=== PATIENT | female | born 1960 | race Caucasian/White ===

== ENCOUNTER 2022-03-04 10:22 | Emergency (ER) | payer OTHER ==
--- NOTE | 2022-03-04 10:38 | ERPHSYRPT ---
- History of Present Illness Time Seen by Provider: 03/04/22 10:36 Source: patient Exam Limitations: no limitations Patient Subjective Stated Complaint: PT states "I am not sure what happened, but on monday I fell at work, this morning I got off work and choked while I was drinking and when I was driving my feet went numb and then my hands went numb and my lips tingled. It was both sides." Triage Nursing Assessment: pt presented alert and oriented X 3, skin pwd Pt ambulates with an upright steady gait, able to speak in clear full sentences pt in no apaprent respiratory distress. PT resting comfortably on the bed. Physician History: This is a 61-year-old white female who fell backwards onto her head 1 week ago while at work in the [employer]. She was wearing her hard hat. This morning she choked while drinking, she also complained of bilateral feet and bilateral hand numbness that occurred this morning. Since her fall she is complained of headache, neck pain and left hip pain. Patient does not have a primary care provider. She does not take any medications and she denies any medical illnesses. Patient states that her choking and numbness symptoms have completely resolved. 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 She denies chest pain. She denies shortness of breath. She has no abdominal pain. She has not had a fever. She has no flulike symptoms. Patient ambulated on her own in an upright and steady manner to her room in the emergency department. Patient has an appointment to see a primary care provider on Monday, March 07, 2022. Timing/Duration: today, resolved prior to arrival Severity: mild (Mild to moderate when they occurred. However, they have resolved completely.) Modifying Factors: Improves With: nothing Associated Symptoms: headaches, No shortness of breath, No chest pain Allergies/Adverse Reactions: No Known Drug Allergies Allergy (Verified 03/04/22 10:34) Hx Tetanus, Diphtheria Vaccination/Date Given: No Hx Influenza Vaccination/Date Given: No Hx Pneumococcal Vaccination/Date Given: No Immunizations Up to Date: Yes Travel Risk - International Travel Have you traveled outside of the country in past 3 weeks: No - Coronavirus Screening Are you exhibiting any of the following symptoms?: No Close contact with a COVID-19 positive Pt in past 14-21 Days: No - Vaccine Status Have you recieved a Covid-19 vaccination: No - Past Medical History Pertinent Past Medical History: No - Past Surgical History Past Surgical History: Yes Other Surgical History: appi. tubal. parathyroid removed. back - Social History Smoking Status: Never smoker Exposure to second hand smoke: No Drug Use: none Patient Lives Alone: No - Nursing Vital Signs Nursing Vital Signs: Initial Vital Signs Temperature 97.5 F 03/04/22 10:28 Pulse Rate 94 H 03/04/22 10:28 Respiratory Rate 20 03/04/22 10:28 Blood Pressure 177/90 03/04/22 10:28 O2 Sat by Pulse Oximetry 97 03/04/22 10:28 Pain Scale Pain Intensity 0 - Physical Exam General Appearance: no apparent distress, alert Eye Exam: PERRL/EOMI, eyes nml inspection Ears, Nose, Throat Exam: normal ENT inspection, moist mucous membranes Neck Exam: normal inspection, non-tender, supple, full range of motion Respiratory Exam: normal breath sounds, lungs clear, airway intact, No chest tenderness, No respiratory distress Cardiovascular Exam: regular rate/rhythm, normal heart sounds, normal peripheral pulses Gastrointestinal/Abdomen Exam: soft, normal bowel sounds, No tenderness Pelvic Exam: not done Rectal Exam: not done Back Exam: normal inspection, normal range of motion, No CVA tenderness, No vertebral tenderness Extremity Exam: normal inspection, normal range of motion, pelvis stable Neurologic Exam: alert, oriented x 3, cooperative, carder blankets II-XII nml as tested, normal mood/affect, nml cerebellar function, nml station & gait, sensation nml Skin Exam: normal color, warm, dry Lymphatic Exam: No adenopathy SpO2 Interpretation: normal SpO2: 97 O2 Delivery: Room Air - Course Nursing assessment & vital signs reviewed: Yes Ordered Tests: Active Orders 24 hr Category Date Time Status EKG-ER Only STAT Care 03/04/22 10:46 Active NPO (ED) STAT Care 03/04/22 10:46 Active Pulse Oximetry (ED) STAT Care 03/04/22 10:46 Active CERVICAL SPINE WO CONTRAST [CT] Stat Exams 03/04/22 10:47 Completed HEAD WITHOUT CONTRAST [CT] Stat Exams 03/04/22 10:47 Completed HIP UNI (2V) INCL PEL IF DONE Stat Exams 03/04/22 10:48 Completed CBC W DIFF Stat Lab 03/04/22 11:30 Completed CMP Stat Lab 03/04/22 11:30 Completed TROPONIN Q3H Lab 03/04/22 11:30 Completed TROPONIN Q3H Lab 03/04/22 14:00 Ordered TROPONIN Q3H Lab 03/04/22 17:00 Ordered TROPONIN Q3H Lab 03/04/22 20:00 Ordered TROPONIN Q3H Lab 03/04/22 23:00 Ordered UA W/RFX CULTURE Stat Lab 03/04/22 10:52 Completed Lab/Rad Data: Laboratory Result Diagrams 03/04/22 11:30 03/04/22 11:30 Laboratory Results 03/04/22 03/04/22 03/04/22 Range/Units 11:30 11:30 11:30 WBC 10.4 (4.0-10.5) x10^3/uL RBC 4.46 (4.1-5.4) x10^6/uL Hgb 12.3 (12.0-16.0) g/dL Hct 39.6 (35-47) % MCV 88.8 (78-100) fL MCH 27.6 (26-32) pg MCHC 31.1 L (32-36) g/dL RDW 14.3 H (11.5-14.0) % Plt Count 411 (150-450) x10^3/uL MPV 9.1 (7.5-11.0) fL Gran % 70.6 H (36.0-66.0) % Immature Gran % (Auto) 0.6 H (0.00-0.4) % Nucleat RBC Rel Count 0.0 (0.00-0.1) % Eos # (Auto) 0.31 (0-0.5) x10^3/uL Immature Gran # (Auto) 0.06 H (0.00-0.03) x10^3u/L Absolute Lymphs (auto) 1.96 (1.0-4.6) x10^3/uL Absolute Monos (auto) 0.68 (0.0-1.3) x10^3/uL Absolute Nucleated RBC 0.00 (0.00-0.01) x10^3u/L Lymphocytes % 18.9 L (24.0-44.0) % Monocytes % 6.5 (0.0-12.0) % Eosinophils % 3.0 (0.00-5.0) % Basophils % 0.4 (0.0-0.4) % Absolute Granulocytes 7.34 H (1.4-6.9) x10^3/uL Basophils # 0.04 (0-0.4) x10^3/uL Sodium 141 (137-145) mmol/L Potassium 4.4 (3.5-5.1) mmol/L Chloride 107 (98-107) mmol/L Carbon Dioxide 22 (22-30) mmol/L Anion Gap 16.1 H (5-15) MEQ/L BUN 18 H (7-17) mg/dL Creatinine 0.80 (0.52-1.04) mg/dL Estimated GFR > 60.0 ML/MIN Glucose 108 H (74-106) mg/dL Calcium 10.3 H (8.4-10.2) mg/dL Total Bilirubin 0.50 (0.2-1.3) mg/dL AST 31 (14-36) U/L ALT 23 (0-35) U/L Alkaline Phosphatase 155 H (38-126) U/L Troponin I < 0.012 (0.000-0.034) ng/mL Serum Total Protein 8.2 (6.3-8.2) g/dL Albumin 4.6 (3.5-5.0) g/dL Urinalys Dipstick Clnc Urine Color (YELLOW) Urine Appearance (CLEAR) Urine pH (5-6) Ur Specific Stites (1.005-1.025) POC Urine Protein Conf (Negative) Urine Ketones (NEGATIVE) Urine Nitrite (NEGATIVE) Urine Bilirubin (NEGATIVE) Urine Urobilinogen (0-1) mg/dL Urine Leukocytes (NEGATIVE) Urine WBC (Auto) (0-5) /HPF Urine RBC (Auto) (0-2) /HPF U Epithel Cells (Auto) (FEW) /HPF Urine Bacteria (Auto) (NEGATIVE) /HPF Urine RBC (0-5) Jamar/ul Ur Culture Indicated? Urine Glucose (NEGATIVE) mg/dL 03/04/22 Range/Units 10:52 WBC (4.0-10.5) x10^3/uL RBC (4.1-5.4) x10^6/uL Hgb (12.0-16.0) g/dL Hct (35-47) % MCV (78-100) fL MCH (26-32) pg MCHC (32-36) g/dL RDW (11.5-14.0) % Plt Count (150-450) x10^3/uL MPV (7.5-11.0) fL Gran % (36.0-66.0) % Immature Gran % (Auto) (0.00-0.4) % Nucleat RBC Rel Count (0.00-0.1) % Eos # (Auto) (0-0.5) x10^3/uL Immature Gran # (Auto) (0.00-0.03) x10^3u/L Absolute Lymphs (auto) (1.0-4.6) x10^3/uL Absolute Monos (auto) (0.0-1.3) x10^3/uL Absolute Nucleated RBC (0.00-0.01) x10^3u/L Lymphocytes % (24.0-44.0) % Monocytes % (0.0-12.0) % Eosinophils % (0.00-5.0) % Basophils % (0.0-0.4) % Absolute Granulocytes (1.4-6.9) x10^3/uL Basophils # (0-0.4) x10^3/uL Sodium (137-145) mmol/L Potassium (3.5-5.1) mmol/L Chloride (98-107) mmol/L Carbon Dioxide (22-30) mmol/L Anion Gap (5-15) MEQ/L BUN (7-17) mg/dL Creatinine (0.52-1.04) mg/dL Estimated GFR ML/MIN Glucose (74-106) mg/dL Calcium (8.4-10.2) mg/dL Total Bilirubin (0.2-1.3) mg/dL AST (14-36) U/L ALT (0-35) U/L Alkaline Phosphatase (38-126) U/L Troponin I (0.000-0.034) ng/mL Serum Total Protein (6.3-8.2) g/dL Albumin (3.5-5.0) g/dL Urinalys Dipstick Clnc MAIN LAB Urine Color LT.YELLOW (YELLOW) Urine Appearance CLEAR (CLEAR) Urine pH 7.0 (5-6) Ur Specific Stites 1.015 (1.005-1.025) POC Urine Protein Conf NEGATIVE (Negative) Urine Ketones NEGATIVE (NEGATIVE) Urine Nitrite NEGATIVE (NEGATIVE) Urine Bilirubin NEGATIVE (NEGATIVE) Urine Urobilinogen 0.2 (0-1) mg/dL Urine Leukocytes NEGATIVE (NEGATIVE) Urine WBC (Auto) NONE (0-5) /HPF Urine RBC (Auto) NONE (0-2) /HPF U Epithel Cells (Auto) NONE (FEW) /HPF Urine Bacteria (Auto) NONE SEEN (NEGATIVE) /HPF Urine RBC MODERATE NON-HEM (0-5) Jamar/ul Ur Culture Indicated? NO Urine Glucose NEGATIVE (NEGATIVE) mg/dL - Progress Progress: improved Progress Note: 03/04/22 12:17 CT scan of the head without contrast is negative for any acute intracranial ab normality. There is evidence of right mastoiditis. CT scan of cervical spine without contrast is negative for any acute fracture. There is multilevel degenerative changes Left pelvis and hip x-ray shows no acute fracture or dislocation. Counseled pt/family regarding: lab results, diagnosis, need for follow-up, rad results - Departure Departure Disposition: Home Clinical Impression: Numbness and tingling in both hands, Numbness and tingling of both feet, Mastoiditis of right side Condition: Stable Critical Care Time: No Referrals: Provider,Unknown [Primary Care Provider] - Follow up/PCP as directed Additional Instructions: Drink plenty of fluids. Take your antibiotics as prescribed. Follow-up with primary care physician for further evaluation management. Prescriptions: Ciprofloxacin [Cipro 500 MG] 500 mg PO BID #14 tablet
--- NOTE | 2022-03-04 11:05 | XRAY ---
Indication: "Discomfort" following fall. Comparison: None 2 view left hip demonstrates mild osteopenia and a few tiny pelvic phleboliths. No other bony, articular, or soft tissue abnormalities.
[2022-03-04 11:17] LABS: Appearance CLEAR (CLEAR); Bilirubin NEGATIVE (NEGATIVE); Dipstick done @ ? MAIN LAB; Glucose NEGATIVE (NEGATIVE); Ketones NEGATIVE (NEGATIVE); Nitrite NEGATIVE (NEGATIVE); Protein,Urine Dip NEGATIVE (Negative); RBC MODERATE NON-HEM Ery/ul (0-5); Specific Gravity 1.015 (1.005-1.025); Urobilinogen 0.2 mg/dL (0-1)
[2022-03-04 11:19] LABS: Bacteria NONE SEEN /HPF (NEGATIVE); Urine Cultured Indicated? NO
[2022-03-04 11:35] LABS: Absolute Neutrophil Ct (ANC) 7.34 x10^3/uL (1.4-6.9); Basophil (Absolute #) 0.04 x10^3/uL (0-0.4); Eosinophil (Absolute #) 0.31 x10^3/uL (0-0.5); Hematocrit 39.6 % (35-47); Hemoglobin 12.3 g/dL (12.0-16.0); Lymphocyte (Absolute #) 1.96 x10^3/uL (1.0-4.6); Lymphocytes % 18.9 % (24.0-44.0); Mean Cell Volume 88.8 fL (78-100); Mean Corpuscular Hemoglobin 27.6 pg (26-32); Mean Corpuscular Hgb Concent. 31.1 g/dL (32-36); Mean Platelet Volume 9.1 fL (7.5-11.0); Monocyte (Absolute #) 0.68 x10^3/uL (0.0-1.3); Monocytes % 6.5 % (0.0-12.0); Neutrophil % 70.6 % (36.0-66.0); Platelet Count 411 x10^3/uL (150-450); Red Blood Count 4.46 x10^6/uL (4.1-5.4); Red Cell Distribution Width 14.3 % (11.5-14.0); White Blood Count 10.4 x10^3/uL (4.0-10.5)
--- NOTE | 2022-03-04 11:42 | XRAY ---
Indication: Headache and neck pain following fall one week ago. Multiple contiguous axial images obtained through the head without contrast. Comparison: None Normal appearing brain parenchyma, ventricles, and bony calvarium for patient's age. Partial opacification right mastoid air cells presumed inflammatory. Remaining visualized paranasal sinuses are clear. Impression: Partial opacification right mastoid air cells presumed inflammatory. Remaining CT head without contrast exam is normal.
--- NOTE | 2022-03-04 11:44 | XRAY ---
Indication: Headache and neck pain following fall one week ago. Multiple contiguous axial images obtained through the cervical spine. Sagittal and coronal reformatted images obtained. Comparison: None Axial images negative for acute fracture, suspicious bony lesions, or spinal canal stenosis. Minimal/mild C4-C7 degenerative endplate spurring. Facets are symmetric. Sagittal and coronal reformatted images demonstrates lordotic straightening, positional versus paraspinal spasm. C4-C5 disc space narrowing. No acute compression fracture, subluxation, or jumped facet. Normal appearing craniocervical junction. Visualized noncontrasted soft tissues including lung apices are unremarkable. Impression: 1. Cervical lordotic straightening, positional versus paraspinal spasm. 2. Negative acute fracture/subluxation. 3. Multilevel degenerative changes.
[2022-03-04 11:52] LABS: ALBUMIN 4.6 g/dL (3.5-5.0); ALKALINE PHOSPHATASE 155 U/L (38-126); ANION GAP 16.1 MEQ/L (5-15); BLOOD UREA NITROGEN 18 mg/dL (7-17); CHLORIDE 107 mmol/L (98-107); Calcium 10.3 mg/dL (8.4-10.2); Carbon Dioxide 22 mmol/L (22-30); EST GLOMERULAR FILTRATION RATE > 60.0 ML/MIN; Glucose 108 mg/dL (74-106); Potassium 4.4 mmol/L (3.5-5.1); SGOT/AST 31 U/L (14-36); SGPT/ALT 23 U/L (0-35); SODIUM 141 mmol/L (137-145); Total Protein 8.2 g/dL (6.3-8.2)
[2022-03-04 12:07] VITALS: BP 154/98; PULSE 70
[2022-03-04 12:19] VITALS: O2SAT 97
[2022-03-04] MEDS ORDERED: XYLOCAINE 1% HCL 20 ML MDV ONE (12:32)
[2022-03-04] MEDS ORDERED: Rocephin 1000 MG INJ ONE (12:32)
[2022-03-04] MEDS: Rocephin 1000 MG INJ IM ONE ×2 (12:34→12:43)
== END 2022-03-04 12:48 | disposition home or self-care (01) ==
LOC: ED 10:22
DX: H70.91 Unspecified mastoiditis, right ear (principal); R20.2 Paresthesia of skin; R51.9 Headache, unspecified; M54.2 Cervicalgia; M25.552 Pain in left hip; Z28.310 Unvaccinated for COVID-19
CPT/HCPCS: 36415; 70450; 72125; 73502; 80053; 81015; 84484; 85025; 93005; 94760; 99284; J0696